=== PATIENT | male | born 1960 | race Caucasian/White ===

== ENCOUNTER 2022-03-18 15:55 | Inpatient (IN) | payer BC ==
[~2022-03-18] VITALS: Ht 182.9 cm; Wt 110.2 kg
[2022-03-18 16:06] VITALS: BP 123/82
[2022-03-18] MEDS ORDERED: LEVOFLOXACIN 750 MG/D5W PREMIX 150 ML IV ONE (16:45)
[2022-03-18] MEDS: NACL 0.9% 2,000 ML IV SCH ×2 (16:55→17:49)
--- NOTE | 2022-03-18 17:00 | NUR ---
Pt brought to ED room from triage for c/o fever and chills with diff urinating. States that he has had urologic issues with recent testing, was supposed to start on abx but did not, started today with systemic s/s of infection. Pt A and Ox4 resp easy mm pink, states diff urinating with urgency and frequency. Pt attached to monitor, changed to gown, urine obtained and sent to lab.
--- NOTE | 2022-03-18 17:10 | NUR ---
PARVEEN Coleman at [facility]. Addendum: 03/18/22 at 1754 by [id number] PARVEEN APPIAH at [facility]
--- NOTE | 2022-03-18 17:20 | NUR ---
IV obtained with 20 g angio in L hand, blood obtained for labs and blood cultures. Site flushes easily. Pt tolerated well.
[2022-03-18 17:40] LABS: APPEARANCE,URINE CLEAR (CLEAR); BILIRUBIN,URINE NEGATIVE (NEGATIVE); BLOOD, URINE NEGATIVE (NEGATIVE); COLOR,URINE STRAW (YELLOW); LEUKOCYTE ESTERASE ,URINE NEGATIVE (NEGATIVE); NITRITE, URINE NEGATIVE (NEGATIVE); PH,URINE 6.5 (5.0-9.0); UGLUCOSE NEGATIVE (NEGATIVE)
[2022-03-18 18:05] LABS: BASOPHILS # (AUTO) 0.1 K/uL (0.00-0.22); BASOPHILS % (AUTO) 0.4 % (0.0-2.0); EOSINOPHILS # (AUTO) 0.1 K/uL (0-0.4); EOSINOPHILS % (AUTO) 0.8 % (0.0-4.0); HEMATOCRIT 39.9 % (36-52); HEMOGLOBIN 13.4 g/dL (12.0-18.0); LYMPHOCYTES # (AUTO) 1.5 K/uL (2.0-11.5); LYMPHOCYTES % (AUTO) 8.8 % (20.5-51.1); MEAN CORPUSCULAR HEMOGLOBIN 29 pg (27-31); MEAN CORPUSCULAR HGB CONC 34 g/dL (33-37); MEAN CORPUSCULAR VOLUME 87.1 fL (80-94); MONOCYTES # (AUTO) 1.3 K/uL (0.8-1.0); MONOCYTES % (AUTO) 7.6 % (1.7-9.3); NEUTROPHILS # (AUTO) 14.5 K/uL (1.8-7.7); NEUTROPHILS % (AUTO) 82.4 % (42.2-75.2); PLATELET COUNT (AUTO) 220 K/uL (140-450); RED BLOOD CELL COUNT(AUTO) 4.58 MIL/uL (4.20-6.10); RED CELL DISTRIBUTION WIDTH 13.5 % (11.6-13.7); WHITE BLOOD COUNT (AUTO) 17.6 K/uL (4.8-10.8)
[2022-03-18 18:28] LABS: CHLORIDE 101 mmol/L (98-107); POTASSIUM 3.9 mmol/L (3.5-5.1); SODIUM SERUM 133 mmol/L (136-145)
[2022-03-18 18:46] LABS: ALBUMIN 3.8 g/dL (3.4-5.0); ANION GAP 15.4 (8-16); ASPARTATE AMINOTRANSFERASE 26 U/L (15-37); CARBON DIOXIDE 20.5 mmol/L (21-32); CREATININE 1.1 mg/dL (0.6-1.3); GFR ARICAN-AMERICAN 88 mL/min (>90); GLUCOSE 173 mg/dL (74-106); TOTAL BILIRUBIN 0.5 mg/dL (0.0-1.0); UREA NITROGEN, BLOOD 11 mg/dL (7-18)
--- NOTE | 2022-03-18 19:30 | NUR ---
TO CT VIA W/C
--- NOTE | 2022-03-18 21:16 | NUR ---
Dr. Boswell examining patient.
[2022-03-18] MEDS ORDERED: POTASSIUM CHLORIDE 10 MEQ TABER PO PRN (22:10)
[2022-03-18] MEDS ORDERED: DOCUSATE SODIUM 100 MG GELCAP PO PRN (22:10)
[2022-03-18] MEDS ORDERED: MAG SULF 2000 MG/WATER PREMIX 50 ML IV PRN (22:10)
[2022-03-18] MEDS ORDERED: LORazepam 2 MG/ML VIAL IVP PRN (22:10)
[2022-03-18] MEDS ORDERED: ZOLPIDEM 10 MG TAB PO PRN (22:10)
[2022-03-18] MEDS ORDERED: ONDANSETRON 4 MG/2 ML VIAL IVP PRN (22:10)
[2022-03-18] MEDS ORDERED: MORPHINE SULFATE 2 MG/ML SYR IVP PRN (22:10)
--- NOTE | 2022-03-18 22:40 | NUR ---
TAI SWAB OBTAINED AND SENT TO LAB
--- NOTE | 2022-03-19 00:15 | NUR ---
REPORT TO AMAYA ENGLE
--- NOTE | 2022-03-19 00:20 | NUR ---
TO 107B VIA GURNEY ATTACHED TO TRANSPORT MONITOR, ACCOMPANIED BY RN AND ERT
--- NOTE | 2022-03-19 00:25 | NUR ---
PATIENT WAS BROUGHT TO [facility]ST UNIT FROM ER AWAKE, ALERT ORIENTED ON ROOM AIR. CC: FEVER , CHILLS, DYSURIA. DX: UTI. NO SOB NOTED. AMBULATED FROM [facility] TO HIS BED WITH A CANE. MRSA SCREENING DONE. IV ACCESS ON THE LEFT HAND 20 GAUGE SALINE LOCK. SKIN INTACT NO WOUND.
[2022-03-19] MEDS: ACETAMINOPHEN 325 MG TAB PO PRN ×4 (01:02→20:48)
--- NOTE | 2022-03-19 01:02 | NUR ---
PATIENT COMPLAINED OF HEADACHE, MEDICATED.
[2022-03-19 04:00] VITALS: BP 144/84
[2022-03-19 07:00] LABS: BASOPHILS # (AUTO) 0.1 K/uL (0.00-0.22); BASOPHILS % (AUTO) 0.6 % (0.0-2.0); EOSINOPHILS # (AUTO) 0.2 K/uL (0-0.4); HEMATOCRIT 36.3 % (36-52); HEMOGLOBIN 12.3 g/dL (12.0-18.0); LYMPHOCYTES # (AUTO) 1.4 K/uL (2.0-11.5); LYMPHOCYTES % (AUTO) 13.5 % (20.5-51.1); MEAN CORPUSCULAR HEMOGLOBIN 30 pg (27-31); MEAN CORPUSCULAR HGB CONC 34 g/dL (33-37); MEAN CORPUSCULAR VOLUME 87.4 fL (80-94); MONOCYTES % (AUTO) 9.9 % (1.7-9.3); NEUTROPHILS # (AUTO) 7.9 K/uL (1.8-7.7); PLATELET COUNT (AUTO) 219 K/uL (140-450); RED BLOOD CELL COUNT(AUTO) 4.16 MIL/uL (4.20-6.10); RED CELL DISTRIBUTION WIDTH 13.5 % (11.6-13.7); WHITE BLOOD COUNT (AUTO) 10.6 K/uL (4.8-10.8)
--- NOTE | 2022-03-19 07:10 | NUR ---
BEDSIDE REPORT GIVEN TO DAY SHIFT NURSE ZAID FOR CONTINUITY OF CARE. PATIENT STABLE.
[2022-03-19 07:11] LABS: ANION GAP 13.8 (8-16); CARBON DIOXIDE 22.7 mmol/L (21-32); POTASSIUM 3.5 mmol/L (3.5-5.1)
--- NOTE | 2022-03-19 07:11 | NUR ---
RECEIVED PT FROM FUNDRAISING SPECIALIST NURSE FOR CONTINUITY OF CARE. PT IN BED AWAKE AND ALERT X4. ABLE TO VERBALIZE NEEDS. RESPIRATIONS EVEN AND UNLABORED ON RA. IV ON LEFT HAND 20G. CALL LIGHT WITHIN REACH. ALL SAFETY PRECAUTIONS IN PLACE.
[2022-03-19 08:00] VITALS: BP 154/89
--- NOTE | 2022-03-19 09:31 | NUR ---
PT C/O HEADACHE 05/23 STATES HE COULDNT SLEEP LAST NIGHT AND HEAD AND EYES HURT. MEDICATED WITH TYLENOL.
[2022-03-19] MEDS ORDERED: DEXTROSE 50% 50 ML SYR IVP PRN (09:35)
--- NOTE | 2022-03-19 10:31 | NUR ---
PT STATES HE FEELS BETTER AND MEDICATION WORKED. PER PT HEADACHE STILL PRESENT BUT VERY MILD.
[2022-03-19] MEDS: INSULIN LISPRO SLIDING SCALE 100 UNITS/ML VIAL SUBQ PRN ×3 (11:50→20:53)
[2022-03-19] MEDS: BLOOD GLUCOSE MONITORING 1 DEV DEV FS SCH ×3 (11:50→20:51)
[2022-03-19 12:00] VITALS: BP 155/78
--- NOTE | 2022-03-19 12:02 | NUR ---
ADMINISTERED INSULIN PER SLIDING SCALE. PT TOLERATING WELL.
--- NOTE | 2022-03-19 14:52 | NUR ---
PT BEDDING WET. PROVIDED PT WITH CLEAN DRY GOWN, CHANGED SHEETS.
[2022-03-19 16:00] VITALS: BP 159/95
--- NOTE | 2022-03-19 16:32 | NUR ---
ADMINISTERED INSULIN PER SLIDING SCALE.
[2022-03-19] MEDS ORDERED: LEVOFLOXACIN 500 MG/D5W PREMIX 100 ML IV SCH (17:00)
--- NOTE | 2022-03-19 17:10 | NUR ---
PT NOTED WITH TEMP OF 101.2. REMOVED BLANKETS AND ADMINISTERED TYLENOL. COOLING MEASURES IN PLACE.
--- NOTE | 2022-03-19 18:10 | NUR ---
CHECKED PT TEMPERATURE IS 100.5, TEMPERATURE DOWN SLIGHTLY PT COVERED IN 3 BLANKETS. REINFORCED TEACHING TO PT AND REMOVED BLANKETS. FAMILY MEMBER AT BEDSIDE.
--- NOTE | 2022-03-19 19:10 | NUR ---
ENDORSED PT TO LANDSCAPE ENGINEER NURSE FOR CONTINUITY OF CARE. PT IN STABLE CONDITION.
[2022-03-19 20:00] VITALS: BP 136/89
--- NOTE | 2022-03-19 20:48 | NUR ---
PATIENT COMPLAINED OF HEADACHE, MEDICATED WITH TYLENOL PO. NO DISTRESS NOTED. ENCOURAGED PATIENT TO USE THE CALL LIGHT WHEN HE NEED ASSISTANCE WITH UNDERSTANDING. NEEDS ATTENDED TO.
--- NOTE | 2022-03-19 20:53 | NUR ---
BLOOD SUGAR CHECKED WAS 254. ADMINISTERED HUMALOG INSULIN ORDERED PER SLIDING SCALE.
[2022-03-20] VITALS: BP 128/80
[2022-03-20 04:00] VITALS: BP 138/88
[2022-03-20 05:43] LABS: BASOPHILS # (AUTO) 0.1 K/uL (0.00-0.22); BASOPHILS % (AUTO) 0.4 % (0.0-2.0); EOSINOPHILS # (AUTO) 0.1 K/uL (0-0.4); EOSINOPHILS % (AUTO) 0.6 % (0.0-4.0); HEMATOCRIT 39.4 % (36-52); HEMOGLOBIN 13.3 g/dL (12.0-18.0); LYMPHOCYTES # (AUTO) 1.7 K/uL (2.0-11.5); LYMPHOCYTES % (AUTO) 12.6 % (20.5-51.1); MEAN CORPUSCULAR HEMOGLOBIN 29 pg (27-31); MEAN CORPUSCULAR HGB CONC 34 g/dL (33-37); MEAN CORPUSCULAR VOLUME 86.1 fL (80-94); MONOCYTES % (AUTO) 14.2 % (1.7-9.3); NEUTROPHILS % (AUTO) 72.2 % (42.2-75.2); PLATELET COUNT (AUTO) 237 K/uL (140-450); RED BLOOD CELL COUNT(AUTO) 4.58 MIL/uL (4.20-6.10); RED CELL DISTRIBUTION WIDTH 13.5 % (11.6-13.7); WHITE BLOOD COUNT (AUTO) 13.8 K/uL (4.8-10.8)
[2022-03-20] MEDS: BLOOD GLUCOSE MONITORING 1 DEV DEV FS SCH ×4 (06:35→20:55)
[2022-03-20] MEDS: INSULIN LISPRO SLIDING SCALE 100 UNITS/ML VIAL SUBQ PRN ×4 (06:37→20:58)
[2022-03-20] MEDS: ACETAMINOPHEN 325 MG TAB PO PRN (06:50)
--- NOTE | 2022-03-20 06:50 | NUR ---
PATIENT COMPLAINED OF HEADACHE, MEDICATED. ICE PACK PLACED OVER THE FOREHEAD. PATIENT STATED "I'M FEELING BETTER. THANK YOU VERY MUCH."
[2022-03-20 06:59] LABS: ANION GAP 17.6 (8-16); POTASSIUM 3.6 mmol/L (3.5-5.1)
--- NOTE | 2022-03-20 07:07 | NUR ---
ENDORSED PATIENT TO DAY SHIFT NURSE ZAID FOR CONTINUITY OF CARE.
--- NOTE | 2022-03-20 07:08 | NUR ---
RECEIVED PT FROM ROOM SERVICE RUNNER NURSE FOR CONTINUITY OF CARE.
[2022-03-20 08:00] VITALS: BP 140/84
--- NOTE | 2022-03-20 09:19 | NUR ---
PATIENT HAS BEEN SCREENED AND CATEGORIZED LOW NUTRITION RISK. PATIENT WILL BE SEEN WITHIN 7 DAYS OF ADMISSION. 03/18/22-03/25/[address]
--- NOTE | 2022-03-20 09:56 | NUR ---
MAKING ROUNDS PT IN BED MAKING PHONE CALL
--- NOTE | 2022-03-20 11:13 | NUR ---
PT BLOOD SUGAR 280 ADMINISTERED INSULIN PER SLIDING SCALE.
[2022-03-20 12:00] VITALS: BP 145/84
--- NOTE | 2022-03-20 13:10 | NUR ---
MAKING ROUNDS, FAMILY AT BEDSIDE.
--- NOTE | 2022-03-20 13:48 | NUR ---
Patient's Plan of Care was discussed and reviewed with [employer] SERVICE SPRAY SUPERVISOR:
[2022-03-20 16:00] VITALS: BP 147/85
[2022-03-20] MEDS ORDERED: GENTAMICIN PER PHARMACY MC PRN (16:45)
--- NOTE | 2022-03-20 19:21 | NUR ---
ENDORSED PT TO WEATHER ALGORITHM SCIENTIST NURSE FOR CONTINUITY OF CARE. PT IN STABLE CONDITION.
[2022-03-20 20:00] VITALS: BP 141/85
[2022-03-20] MEDS ORDERED: GENTAMICIN 80 MG/2 ML VIAL ONE ×2 (20:23→20:28)
--- NOTE | 2022-03-20 20:30 | NUR ---
PATIENT AWAKE ALERT ORIENTED. WELL RESTED IN BED ON ROOM AIR. NO SOB NOTED. RESPIRATION EVEN UNLABORED. DENIES PAIN. CALL LIGHT IN REACH. NEEDS ATTENDED AND MET.
--- NOTE | 2022-03-20 20:45 | NUR ---
SCHEDULED MEDICATION DUE ADMINISTERED.
--- NOTE | 2022-03-20 20:55 | NUR ---
PATIENT BLOOD SUGAR CHECKED WAS 231, ADMINISTERED HUMALOG INSULIN ORDERED PER SLIDING SCALE.
[2022-03-20] MEDS ORDERED: GENTAMICIN IV ONE (21:00)
[2022-03-20] MEDS ORDERED: NACL 0.9% IV ONE (21:00)
[2022-03-21] VITALS: BP 133/88
[2022-03-21 04:00] VITALS: BP 123/79
[2022-03-21 05:26] LABS: BASOPHILS # (AUTO) 0.1 K/uL (0.00-0.22); BASOPHILS % (AUTO) 0.8 % (0.0-2.0); EOSINOPHILS # (AUTO) 0.3 K/uL (0-0.4); EOSINOPHILS % (AUTO) 2.2 % (0.0-4.0); HEMATOCRIT 39.8 % (36-52); HEMOGLOBIN 13.3 g/dL (12.0-18.0); LYMPHOCYTES # (AUTO) 1.9 K/uL (2.0-11.5); LYMPHOCYTES % (AUTO) 15.4 % (20.5-51.1); MEAN CORPUSCULAR HEMOGLOBIN 29 pg (27-31); MEAN CORPUSCULAR HGB CONC 34 g/dL (33-37); MEAN CORPUSCULAR VOLUME 86.9 fL (80-94); MONOCYTES # (AUTO) 1.6 K/uL (0.8-1.0); MONOCYTES % (AUTO) 12.7 % (1.7-9.3); NEUTROPHILS # (AUTO) 8.6 K/uL (1.8-7.7); NEUTROPHILS % (AUTO) 68.9 % (42.2-75.2); PLATELET COUNT (AUTO) 280 K/uL (140-450); RED BLOOD CELL COUNT(AUTO) 4.58 MIL/uL (4.20-6.10); RED CELL DISTRIBUTION WIDTH 13.7 % (11.6-13.7); WHITE BLOOD COUNT (AUTO) 12.4 K/uL (4.8-10.8)
[2022-03-21 05:45] LABS: ANION GAP 15.2 (8-16); CARBON DIOXIDE 25.8 mmol/L (21-32)
[2022-03-21] MEDS: INSULIN LISPRO SLIDING SCALE 100 UNITS/ML VIAL SUBQ PRN ×4 (06:36→20:32)
[2022-03-21] MEDS: BLOOD GLUCOSE MONITORING 1 DEV DEV FS SCH ×4 (06:36→20:28)
--- NOTE | 2022-03-21 07:23 | NUR ---
GAVE REPORT TO MORNING SHIFT NURSE FOR CONTINUITY OF CARE. PATIENT IN STABLE CONDITION.
--- NOTE | 2022-03-21 07:24 | NUR ---
RECEIVED PT FROM ENTRY LEVEL ASSISTANT MANAGER NURSE. PT ASLEEP IN BED. VISIBLE CHEST RISE/FALL. NO DISTRESS NOTED. CALL LIGHT WITHIN REACH. ALL SAFETY PRECAUTIONS IN PLACE.
--- NOTE | 2022-03-21 07:38 | NUR ---
Patient's Plan of Care was discussed and reviewed with DIGITAL CAMPAIGN SPECIALIST:
[2022-03-21 08:00] VITALS: BP 127/73
[2022-03-21] MEDS: ACETAMINOPHEN 325 MG TAB PO PRN ×2 (09:58→16:11)
[2022-03-21 12:00] VITALS: BP 136/71
[2022-03-21 16:00] VITALS: BP 134/76
--- NOTE | 2022-03-21 19:30 | NUR ---
ENDORSED PT TO DRAWBRIDGE TENDER NURSE FOR CONTINUITY OF CARE. PT IN STABLE CONDITION.
[2022-03-21 20:00] VITALS: BP 126/62
[2022-03-21] MEDS: GENTAMICIN IV SCH (20:22)
[2022-03-21] MEDS: DEXTROSE 5% IV SCH (20:22)
--- NOTE | 2022-03-21 20:22 | NUR ---
PATIENT AAOX4 RESTING IN BED. NO DISTRESS NOTED. RESPIRATION REGULAR UNLABORED. NO COMPLAINTS OF PAIN. CALL LIGHT IN REACH. ALL NEEDS ATTENDED AND MET. ADMINISTERED SCHEDULED DUE MEDICATION.
[2022-03-22] VITALS: BP 118/79
--- NOTE | 2022-03-22 01:22 | NUR ---
PATIENT DROPPED THE 2 TYLENOL. NURSE TOOK ANOTHER 2 TYLENOL FROM THE PYXIS.
[2022-03-22 04:00] VITALS: BP 118/81
[2022-03-22] MEDS: ACETAMINOPHEN 325 MG TAB PO PRN ×2 (04:22→13:01)
[2022-03-22 06:07] LABS: BASOPHILS # (AUTO) 0.1 K/uL (0.00-0.22); BASOPHILS % (AUTO) 0.8 % (0.0-2.0); EOSINOPHILS # (AUTO) 0.3 K/uL (0-0.4); EOSINOPHILS % (AUTO) 2.7 % (0.0-4.0); HEMATOCRIT 39.5 % (36-52); HEMOGLOBIN 13.3 g/dL (12.0-18.0); LYMPHOCYTES # (AUTO) 1.5 K/uL (2.0-11.5); LYMPHOCYTES % (AUTO) 15.1 % (20.5-51.1); MEAN CORPUSCULAR HEMOGLOBIN 29 pg (27-31); MEAN CORPUSCULAR HGB CONC 34 g/dL (33-37); MEAN CORPUSCULAR VOLUME 86.3 fL (80-94); MONOCYTES # (AUTO) 1.1 K/uL (0.8-1.0); MONOCYTES % (AUTO) 11.1 % (1.7-9.3); NEUTROPHILS # (AUTO) 6.9 K/uL (1.8-7.7); NEUTROPHILS % (AUTO) 70.3 % (42.2-75.2); PLATELET COUNT (AUTO) 281 K/uL (140-450); RED BLOOD CELL COUNT(AUTO) 4.58 MIL/uL (4.20-6.10); RED CELL DISTRIBUTION WIDTH 13.5 % (11.6-13.7); WHITE BLOOD COUNT (AUTO) 9.8 K/uL (4.8-10.8)
[2022-03-22 06:16] LABS: ANION GAP 12.4 (8-16); CARBON DIOXIDE 25.7 mmol/L (21-32); POTASSIUM 4.1 mmol/L (3.5-5.1)
[2022-03-22] MEDS: BLOOD GLUCOSE MONITORING 1 DEV DEV FS SCH ×4 (06:32→21:10)
--- NOTE | 2022-03-22 06:32 | NUR ---
BLOOD SUGAR CHECKED WAS 165. ADMINISTERED HUMALOG INSULIN ORDERED PER SLIDING SCALE.
[2022-03-22] MEDS: INSULIN LISPRO SLIDING SCALE 100 UNITS/ML VIAL SUBQ PRN ×4 (06:33→21:09)
--- NOTE | 2022-03-22 07:02 | NUR ---
ENDORSED PATIENT TO DAY SHIFT NURSE FOR CONTINUITY OF CARE.
--- NOTE | 2022-03-22 07:03 | NUR ---
RECEIVED PT FROM CHILDREN'S MINISTRY DIRECTOR NURSE FOR CONTINUITY OF CARE. PT IN BED AOX4, ABLE TO VERBALIZE NEEDS. RESPIRATIONS EVEN AND UNLABORED. NO DISTRESS NOTED, DENIES PAIN. CALL LIGHT WITHIN REACH. ALL SAFETY MEASURES IN PLACE.
[2022-03-22 08:00] VITALS: BP 125/60
--- NOTE | 2022-03-22 11:30 | NUR ---
BLOOD SUGAR CHECK DONE, ADMINISTERED INSULIN PER SLIDING SCALE.
[2022-03-22] MEDS: NACL 0.9% 1,000 ML IV SCH ×2 (11:58→21:10)
--- NOTE | 2022-03-22 13:00 | NUR ---
PT C/O HEADACHE, ADMINISTERED PRN TYLENOL.
--- NOTE | 2022-03-22 15:00 | NUR ---
FAMILY AT BEDSIDE
[2022-03-22 16:00] VITALS: BP 125/73
--- NOTE | 2022-03-22 16:35 | NUR ---
PT BS CHECK DONE. ADMINISTERED INSULIN PER SLIDING SCALE.
--- NOTE | 2022-03-22 19:10 | NUR ---
ENDORSED PT TO LABORATORY DEVELOPMENT TECHNICIAN NURSE FOR CONTINUITY OF CARE. PT IN STABLE CONDITION.
--- NOTE | 2022-03-22 19:30 | NUR ---
RECEIVED PT FROM AM NURSE FOR CONTINUITY OF CARE.PT IS STABLE
[2022-03-22] MEDS: GENTAMICIN IV SCH (21:29)
[2022-03-22] MEDS: DEXTROSE 5% IV SCH (21:29)
--- NOTE | 2022-03-22 21:30 | NUR ---
ALL MEDICATIONS GIVEN, NO ADVERSE REACTIONS NOTED
[2022-03-23 04:00] VITALS: BP 127/73
[2022-03-23] MEDS: NACL 0.9% 1,000 ML IV SCH (06:29)
[2022-03-23] MEDS: INSULIN LISPRO SLIDING SCALE 100 UNITS/ML VIAL SUBQ PRN ×2 (06:30→12:13)
[2022-03-23] MEDS: BLOOD GLUCOSE MONITORING 1 DEV DEV FS SCH ×2 (06:42→12:10)
[2022-03-23 07:40] LABS: CARBON DIOXIDE 26.1 mmol/L (21-32); POTASSIUM 4.1 mmol/L (3.5-5.1)
[2022-03-23 07:48] LABS: BASOPHILS # (AUTO) 0.1 K/uL (0.00-0.22); BASOPHILS % (AUTO) 0.7 % (0.0-2.0); EOSINOPHILS # (AUTO) 0.3 K/uL (0-0.4); EOSINOPHILS % (AUTO) 3.5 % (0.0-4.0); HEMATOCRIT 44.4 % (36-52); HEMOGLOBIN 14.6 g/dL (12.0-18.0); LYMPHOCYTES # (AUTO) 1.7 K/uL (2.0-11.5); LYMPHOCYTES % (AUTO) 21.3 % (20.5-51.1); MEAN CORPUSCULAR HEMOGLOBIN 29 pg (27-31); MEAN CORPUSCULAR HGB CONC 33 g/dL (33-37); MEAN CORPUSCULAR VOLUME 87.2 fL (80-94); NEUTROPHILS % (AUTO) 61.5 % (42.2-75.2); PLATELET COUNT (AUTO) 262 K/uL (140-450); RED BLOOD CELL COUNT(AUTO) 5.09 MIL/uL (4.20-6.10); RED CELL DISTRIBUTION WIDTH 13.5 % (11.6-13.7); WHITE BLOOD COUNT (AUTO) 8.1 K/uL (4.8-10.8)
[2022-03-23 08:00] VITALS: BP 134/69
[2022-03-23] MEDS: ACETAMINOPHEN 325 MG TAB PO PRN (09:43)
--- NOTE | 2022-03-23 09:43 | NUR ---
PT COMPLAINT OF HEADACHE, PRN TYLENOL PO WAS GIVEN.
[2022-03-23] MEDS ORDERED: SULF-59 PO (09:57)
[2022-03-23] MEDS ORDERED: METF-346 PO (09:58)
--- NOTE | 2022-03-23 12:10 | NUR ---
BS CHECK 231. INSULIN WAS GIVEN PER SLIDING SCALE.
--- NOTE | 2022-03-23 14:41 | NUR ---
DC PLANNING ASSESSMENT COMPLETE SEE ASSESSMENT FOR DETAILS. PT REPORTS TENTATIVE DC PLAN IS FOR PT TO RETURN HOME WITH SISTER PROVIDING TRANSPORTATION , WHEN MEDICALLY STABLE. Addendum: 03/23/22 at 1444 by Kathy Sauceda Amended: Links added.
--- NOTE | 2022-03-23 15:00 | NUR ---
03/23/22 RD INITIAL ASSESSMENT COMPLETED PLEASE REFER TO NUTRITION ASSESSMENT UNDER CARE ACTIVITY FOR ESTIMATED NUTRITIONAL NEEDS. 1. CONTINUE CCHO 60 GM DIET TOLERATED 2. PROVIDED NUTRITION EDUCATION AND HANDOUTS ON DM 3. MONITOR BG LEVELS 4. RD TO FOLLOW-UP 7 DAYS, LOW RISK REVIEWED BY CHERISE MOURA RD
--- NOTE | 2022-03-23 15:30 | NUR ---
PT LEFT HOSPITAL, TRANSPORTED BY PRIVATE CAR PER WHEELCHAIR. ACCOMPANIED BY HIS SISTER. ALERT AND VERBALLY RESPONSIVE. IV AND ID BAND REMOVED. ALL PERSONAL BELONGINGS TAKEN. PT REQUESTED MEDICATION FOR INSOMNIA. DR. IZAGUIRRE NOTIFIED AND STATED SHE WILL SEND TO PREFERRED PHARMACY. SKIN INTACT. REMAINS STABLE.
[2022-03-23] MEDS ORDERED: MELA5TAB6 PO (15:32)
== END 2022-03-23 15:30 | disposition home or self-care (01) | DRG 720 ==
LOC: MED 15:55 → MTU 22:10
PROVIDERS: ADMIT Family Medicine; ATTEND Family Medicine
DX: A41.9 Sepsis, unspecified organism (principal); E83.51 Hypocalcemia; E87.1 Hypo-osmolality and hyponatremia; N39.0 Urinary tract infection, site not specified; B96.20 Unspecified Escherichia coli [E. coli] as the cause of diseases classified elsewhere; E11.9 Type 2 diabetes mellitus without complications; E78.5 Hyperlipidemia, unspecified; Z20.822 Contact with and (suspected) exposure to COVID-19; I10 Essential (primary) hypertension; N40.0 Benign prostatic hyperplasia without lower urinary tract symptoms; Z16.11 Resistance to penicillins; Z86.73 Personal history of transient ischemic attack (TIA), and cerebral infarction without residual deficits; Z88.0 Allergy status to penicillin
CPT/HCPCS: 36415; 71045; 80048; 80053; 80170; 81003; 82550; 82948; 83605; 83735; 84484; 85025; 87040; 87081; 87086; 93005; 96361; 96365; 99291; J1580; J1956; J2060; J2270; J3475; J7060; Q0092; Q9967

== ENCOUNTER 2022-04-17 12:44 | Emergency (ER) | payer BC ==
[~2022-04-17] VITALS: Ht 182.9 cm; Wt 108.4 kg
[~2022-04-17 12:44] MED LIST: MELA5TAB6 PO; METF-346 PO; SULF-59 PO
[2022-04-17 13:26] VITALS: BP 153/89
[2022-04-17 14:04] VITALS: BP 153/89
--- NOTE | 2022-04-17 14:04 | NUR ---
Patient discharged with v/s stable. Written and verbal after care instructions given and explained. Patient verbalized understanding. Ambulatory with steady gait. All questions addressed prior to discharge. Advised to follow up with PMD.
== END 2022-04-17 14:04 | disposition home or self-care (01) ==
LOC: MED 12:44
DX: I80.8 Phlebitis and thrombophlebitis of other sites (principal); K21.9 Gastro-esophageal reflux disease without esophagitis; E11.9 Type 2 diabetes mellitus without complications; I10 Essential (primary) hypertension; Z88.0 Allergy status to penicillin; Z79.4 Long term (current) use of insulin; Z79.899 Other long term (current) drug therapy
CPT/HCPCS: 99281